=== PATIENT | female | born 1945 | race Caucasian/White ===

== ENCOUNTER 2017-02-05 14:08 | Outpatient (CLI) | payer OTHER, MEDICARE | END 2017-02-05 19:31 | disposition home or self-care (01) | LOC: SMA 14:08 | PROVIDERS: ATTEND Specialist | DX: Z12.31 Encounter for screening mammogram for malignant neoplasm of breast (principal) | CPT/HCPCS: G0202 ==

== ENCOUNTER 2018-02-06 13:17 | Outpatient (CLI) | payer OTHER, MEDICARE | END 2018-02-06 20:06 | disposition home or self-care (01) | LOC: EDBD 13:17 → SMA 13:17 | PROVIDERS: ATTEND Specialist | DX: Z12.31 Encounter for screening mammogram for malignant neoplasm of breast (principal) | CPT/HCPCS: 77067 ==

== ENCOUNTER 2019-03-23 14:23 | Outpatient (CLI) | payer OTHER, MEDICARE | END 2019-03-23 21:18 | disposition home or self-care (01) | LOC: SMA 14:23 | PROVIDERS: ATTEND Specialist | DX: Z12.31 Encounter for screening mammogram for malignant neoplasm of breast (principal) | CPT/HCPCS: 77067 ==

== ENCOUNTER 2020-06-13 14:01 | Outpatient (CLI) | payer OTHER, MEDICARE | END 2020-06-13 21:00 | disposition home or self-care (01) | LOC: SMA 14:01 | DX: Z12.31 Encounter for screening mammogram for malignant neoplasm of breast (principal) | CPT/HCPCS: 77067 ==